=== PATIENT | male | born 2005 | race African-American/Black ===

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

== ENCOUNTER 2023-04-13 20:20 | Emergency (ER) | payer OTHER ==
[2023-04-13 20:29] VITALS: BP 129/72; PULSE 89; RESP 18; TEMP 97.8; BMI 18.7
== END 2023-04-13 21:20 | disposition home or self-care (01) ==
LOC: FER 20:20
DX: S93.402A Sprain of unspecified ligament of left ankle, initial encounter (principal); Y93.02 Activity, running
CPT/HCPCS: 73610-TC-LT-FY; 99283-25

== ENCOUNTER 2023-08-22 23:50 | Emergency (ER) | payer OTHER ==
[2023-08-22 23:55] VITALS: BP 115/63; PULSE 65; RESP 19; TEMP 98.2; BMI 24.2
[2023-08-23] MEDS ORDERED: IBUPROFEN 600 MG TABLET (FP) PO ONE (00:08)
== END 2023-08-23 01:21 | disposition home or self-care (01) ==
LOC: FER 23:50
DX: S62.91XA Unspecified fracture of right hand, initial encounter for closed fracture (principal); M79.644 Pain in right finger(s); W01.198A Fall on same level from slipping, tripping and stumbling with subsequent striking against other object, initial encounter; X50.0XXA Overexertion from strenuous movement or load, initial encounter
CPT/HCPCS: 73130-TC-RT-FY; 99283-25